=== PATIENT | male | born 1970 | race Two or more races ===

== ENCOUNTER → 2025-09-20 | Emergency (ER) | payer OTHER ==
[~2025-09-20] VITALS: Ht 185.4 cm; Wt 102.1 kg
[~2025-09-20] MED LIST: CEFTRIAXONE SODIUM 1,000 MG VIAL IM STA; CEFTRIAXONE SODIUM 1,000 MG VIAL ONE; CENTANY30 GM TOP; CEPHALEXIN500 MG PO; DIPHTH,PERTUSS(ACELL),TET VAC 0.5 ML SYRINGE IM ONE; DIPHTH,PERTUSS(ACELL),TET VAC 0.5 ML SYRINGE IM STA; MELOXICAM15 MG PO
[2025-09-20 23:06] VITALS: BP 130/83; O2SAT 99
== END | disposition home or self-care (01) ==
LOC: ER 22:56
DX: S90.512A Abrasion, left ankle, initial encounter (principal); W19.XXXA Unspecified fall, initial encounter; Y93.89 Activity, other specified; Y92.89 Other specified places as the place of occurrence of the external cause; Y99.9 Unspecified external cause status; M77.32 Calcaneal spur, left foot; E11.9 Type 2 diabetes mellitus without complications